=== PATIENT | female | born 1960 | race Caucasian/White ===

== ENCOUNTER 2024-08-29 09:48 | Emergency (ER) | payer BC, SELFPAY ==
[2024-08-29 09:59] VITALS: BP 120/62
[2024-08-29] MEDS: ZOFRAN 4 MG IV (10:34)
[2024-08-29] MEDS: MORPHINE SULFATE 4 MG IV (10:52)
[2024-08-29 10:57] LABS: Blood Urea Nitrogen 33 mg/dl (7-17); Carbon Dioxide 25 mmol/L (22-30); Chloride 100 mmol/L (98-107); Glucose 120 mg/dl (70-99); Potassium 3.4 mmol/L (3.5-5.1); Sodium 135 mmol/L (135-145); eGFR > 60.00
[2024-08-29 10:58] LABS: Calcium 9.2 mg/dl (8.4-10.2)
--- NOTE | 2024-08-29 11:04 | ED.MUSCINJ ---
HPI-Injury
<ST StefaniePA - Last Filed: 08/29/24 12:34>
General
Chief Complaint: Musculo-Skeletal Complaint
Source: patient
Exam Limitations: other (Pt unable to remove pants at time of exam)
Time Seen by Provider: 08/29/24 09:56
History of Present Illness-Injury
Is this injury a work related problem?: No
Initial Injury comments:
This is a 64 y/o female with PMH of sarcoidosis who presents to the ED with CC of leg pain. She reports a fall at approximately 8:15 am that was the result of falling off the ottoman at her home when trying to kill a bug. She fell on her buttocks
onto the hardwood floor and denies LOC or hitting her head. The pain is located in the R hip region and superior thigh. She took Ibuprofen prior to arrival at the ED and denies any improvement in pain. She describes radiation down the leg. Pain is
10/10 and 'unbearable and stabbing.' She describes a 'click' sound when she tried to move her leg [id number] after the fall. She denies any previous injuries to the LE and any past surgeries to the LE. Admits to nausea and contributes it to not
eating or drinking anything today. She denies headache, vision changes or dizziness.
<Ivan Gross DO - Last Filed: 08/29/24 13:32>
History of Present Illness-Injury
Initial Injury comments:
64-year-old female presented to fall. She was trying to get a bug and was standing on a ottoman. She fell down injuring her right side. Complains of pain in her right upper hip as well as the right upper leg and right buttocks. She denies head
injury. No neck pain. No upper back pain. No abdominal pain. No chest pain. adds that she was in a good amount of pain and had to call 911
Past History
<Ivan Gross DO - Last Filed: 08/29/24 13:32>
Past History
ED Past Medical History: Other (Sarcoidosis)
Review of Systems
<ABDIEL Watts - Last Filed: 08/29/24 12:34>
Review of Systems
All Other Systems: ROS reviewed and negative except as documented in HPI and ROS
Constitutional: Reports no symptoms
EENT: Reports no symptoms
Respiratory: Reports no symptoms
Cardiac: Reports no symptoms
ABD/GI: Reports no symptoms
: Reports no symptoms
Skin: Reports no symptoms
Neurological: Reports no symptoms
Phy Exam
<ABDIEL Watts - Last Filed: 08/29/24 12:34>
General Physical Exam
General Presentation: mild distress
General age: appears stated age
General Skin: warm and dry
General Habitus: normal
General Mental: alert and anxious
General Hydration: appears well hydrated
Eye Exam
Eye Exam: PERRL
Cardiovascular Exam
Cardiovascular Exam: no edema, no gallop, no JVD, no murmur, no carotid bruit and tachycardia
Pulmonary Exam
Pulmonary Exam: lungs clear, no respiratory distress, no rales, no crackles, no rhonchi, no wheezing and no cough
Gastrointestinal Exam
Gastrointestinal Exam: non tender, soft and non distended
Neurological Exam
Neurological Exam: alert, oriented x3, no motor deficits, no sensory deficits and speech normal
Musculoskeletal Exam
Musculoskeletal Exam: neuro vasc intact and other (R hip with limited ROM with regard to flexion; full active ROM internal and external rotation)
<Ivan Gross DO - Last Filed: 08/29/24 13:32>
Physical Exam
Physical Exam:
CONSTITUTIONAL Patient alert and oriented to person, place and time. Well-appearing. Vital signs reviewed. Mild to moderate pain distress
HEAD atraumatic, normocephalic.
EYES eyelids normal to inspection, Extraocular muscles intact, Conjunctiva normal, Sclera normal.
NECK normal range of motion, Trachea midline, no jugular venous distention.
RESPIRATORY CHEST No respiratory distress noted, Chest expansion equal
\\
ABDOMEN abdomen nontender, Bowel sounds normal. No distention.
BACK normal inspection, no obvious deformities. No midline tenderness.
UPPER EXTREMITY range of motion normal, Motor strength normal, no cyanosis, no edema.
LOWER EXTREMITY no cyanosis, no edema. Patient is not shortened. There is no natural internal/external rotation. She has no pain with internal or external rotation on exam. She does have pain with flexion of the hip but is able to flex the
hip. There is no tenderness to the greater trochanter. She does have moderate tenderness toward the right groin. She reports pain is in her upper thigh and right pelvic region
NEURO Speech normal, No focal motor deficits, Joselo coma scale 15, Memory normal, Cranial Nerves intact to screening exam.
SKIN skin warm, dry, and normal in color.
Injury Course
<Elo Licona, ABDIEL - Last Filed: 08/29/24 12:34>
Orders/Labs/Results
Orders:
Orders
08/29/24 10:14
Ondansetron Orally Disint [Zofran Odt (Orally Disintegrating)] 4 mg PO NOW STA
08/29/24 10:21
CT Abd/Pel (IV only)-DH only Urgent
Comment:
Reason For Exam: R sided pain, fall, hematuria
08/29/24 10:30
Basic Metabolic Panel Urgent
Complete Blood Count/With Diff Urgent
08/29/24 10:32
Ondansetron Injectable [Zofran] 4 mg .ROUTE .STK-MED ONE
08/29/24 10:34
Ondansetron Injectable [Zofran] 4 mg IV NOW STA
08/29/24 10:46
Morphine Sulfate 4 mg .ROUTE .STK-MED ONE
08/29/24 10:52
Morphine Sulfate 4 mg IV NOW STA
08/29/24 12:03
HYDROmorphone [Dilaudid] 0.5 mg IV NOW STA
08/29/24 12:18
Hawk Placement- Treatment ONCE
Reason for insertion: Urology Determination
08/29/24 12:27
IV Insert/Care/Rem.- Treatment PRN
Abnormal Lab Results
08/29/24
10:30
Hgb 11.9 L g/dL
(12.0-16.0)
Hct 36.6 L %
(37.0-47.0)
MCHC 32.5 L g/dL
(33.0-37.0)
RDW 14.8 H %
(11.5-14.5)
Absolute Lymphs (auto) 0.4 L 10^3/uL
(1.2-3.4)
Immature Gran % 0.7 H %
(0-0.5)
Neutrophils % 90.7 H %
(42.2-75.2)
Lymphocytes % 6.6 L %
(20.5-51.1)
Monocytes % 1.6 L %
(1.7-9.3)
Potassium 3.4 L mmol/L
(3.5-5.1)
BUN 33 H mg/dl
(7-17)
Glucose 120 H mg/dl
(70-99)
08/29/24 10:30
08/29/24 10:30
<Ivan Gross, - Last Filed: 08/29/24 13:32>
Orders/Labs/Results
Orders:
Orders
08/29/24 10:14
Ondansetron Orally Disint [Zofran Odt (Orally Disintegrating)] 4 mg PO NOW STA
08/29/24 10:21
CT Abd/Pel (IV only)-[facility] only Urgent
Comment:
Reason For Exam: R sided pain, fall, hematuria
08/29/24 10:30
Basic Metabolic Panel Urgent
Complete Blood Count/With Diff Urgent
08/29/24 10:32
Ondansetron Injectable [Zofran] 4 mg .ROUTE .STK-MED ONE
08/29/24 10:34
Ondansetron Injectable [Zofran] 4 mg IV NOW STA
08/29/24 10:46
Morphine Sulfate 4 mg .ROUTE .STK-MED ONE
08/29/24 10:52
Morphine Sulfate 4 mg IV NOW STA
08/29/24 12:03
HYDROmorphone [Dilaudid] 0.5 mg IV NOW STA
08/29/24 12:18
Hawk Placement- Treatment ONCE
Reason for insertion: Urology Determination
08/29/24 12:27
IV Insert/Care/Rem.- Treatment PRN
Abnormal Lab Results
08/29/24
10:30
Hgb 11.9 L g/dL
(12.0-16.0)
Hct 36.6 L %
(37.0-47.0)
MCHC 32.5 L g/dL
(33.0-37.0)
RDW 14.8 H %
(11.5-14.5)
Absolute Lymphs (auto) 0.4 L 10^3/uL
(1.2-3.4)
Immature Gran % 0.7 H %
(0-0.5)
Neutrophils % 90.7 H %
(42.2-75.2)
Lymphocytes % 6.6 L %
(20.5-51.1)
Monocytes % 1.6 L %
(1.7-9.3)
Potassium 3.4 L mmol/L
(3.5-5.1)
BUN 33 H mg/dl
(7-17)
Glucose 120 H mg/dl
(70-99)
08/29/24 10:30
08/29/24 10:30
<Ivan Gross DO - Last Filed: 08/29/24 13:32>
MDM/Problems Addressed
Differential Diagnosis Includes:
Psoas hematoma, kidney injury, pelvic fracture, hip fracture, acetabular fracture, femur fracture
MDM/Problems Addressed:
Pelvic fracture, hematuria
<Ivan Gross DO - Last Filed: 08/29/24 13:32>
*Radiology
Radiology exam reviewed: preliminary read by ED provider (Preliminary read by me shows a displaced right pelvic fracture. Seems to be some intrusion towards the bladder.)
*Pulse Oximetry
Patient hypoxic: no
*Critical Care Note
Total Time (30-74mins, 75-104mins- exclusive of procedures): 45 minutes
Data Reviewed
Source: patient and spouse
Further Testing Considered But Not Given:
Considered head and C-spine imaging but patient has no midline tenderness and no evidence of head injury and denies head injury. She is awake alert and orient
<Ivan Gross DO - Last Filed: 08/29/24 13:32>
Patient Management
Discussion with other providers: [employer] Operator Chief (Case discussed with Dr. Wilcox of orthopedics) and Radiologist (Case discussed with Dr. Jalloh who will emergently review films)
Escalation/DeEscalation of care consider admission/obs:
12:47 PM 64-year-old female presents after fall from an ottoman trying to get a bug. She fell to her right side. She denies head is not anticoagulated. History of sarcoidosis. Does have an apparent displaced right superior pubic ramus fracture
and I am concerned in light of the fact she has hematuria. Still await radiology reading. Will discuss with trauma surgery. Case was discussed with [facility] orthopedics Dr. Wilcox
1320 Case discussed with trauma at [facility] Dr. Dennison. Patient does remain stable. Does request a cervical collar for transport. On reevaluation patient states her pain is controlled but she is lying still. Does have blood into her catheter.
Again I do not have clinical concern for urethral injury but in light of the possible bladder injury Hawk catheter was placed.
ED Attending Note
<ABDIEL Watts - Last Filed: 08/29/24 12:34>
-
Portions of this chart may have been created with voice recognition software.� Occasional wrong word or��sound alike� substitutions may have occurred due to the inherent limitations of voice recognition software.
Discharge Plan
Departure
Patient Disposition: Acute Care Hospital
Date of Disposition: 08/29/24
Time of Disposition: 12:31
Discharge Problem:
Pelvic fracture, Extraperitoneal pelvic hematoma, Hematuria
Referrals:
UNKNOWN - PT DOES,NOT KNOW [Family Provider] -
Hospital Transfer
Other hospital: [facility]
I certify that the patient requires transfer: Yes
Discussed case with accepting physician: Trauma
Reason for transfer: specialties available
Interventions
Interventions:
*Risk Screen - Suicide Last Done: 08/29/24 09:59
*General Assessment Last Done: 08/29/24 11:28
*Neglect/Abuse Screening Last Done: 08/29/24 09:59
ED- Fall Risk Assessment Last Done: 08/29/24 11:28
*ED COVID-19 Vaccine History Last Done: 08/29/24 11:28
ED-Musculoskeletal Assessment Last Done: 08/29/24 11:26
Discharge Date and Time
Print Language: RUSSIAN
[2024-08-29 11:11] LABS: % Basophils 0.2 % (0-2); % Eosinophils 0.2 % (0-6); % Immature Granulocytes 0.7 % (0-0.5); % Lymphocytes 6.6 % (20.5-51.1); % Monocytes 1.6 % (1.7-9.3); % Neutrophils 90.7 % (42.2-75.2); Absolute Lymphocytes 0.4 10^3/uL (1.2-3.4); Absolute Monocytes 0.1 10^3/uL (0.1-0.6); Absolute Neutrophils 5.2 10^3/uL (1.4-6.5); Hematocrit 36.6 % (37.0-47.0); Hemoglobin 11.9 g/dL (12.0-16.0); Mean Corp Hgb Conc. 32.5 g/dL (33.0-37.0); Mean Corpuscular Hgb 27.6 pg (27.0-31.0); Mean Corpuscular Volume 84.9 fL (81.0-99.0); Mean Platelet Volume 9.3 fL (7.4-10.4); Nucleated Red Blood Cells % 0 %; Platelet Count 166 10^3/uL (130-400); Red Blood Cell Count 4.31 10^6/uL (4.20-5.40); Red Cell Dist. Width 14.8 % (11.5-14.5); White Blood Cell Count 5.8 10^3/uL (4.8-10.8)
[2024-08-29 11:30] VITALS: BP 110/74
[2024-08-29] MEDS: DILAUDID 0.5 MG IV ×2 (13:08→14:18)
[2024-08-29 13:33] VITALS: BMI 24.8
[2024-08-29 13:34] VITALS: BP 104/75
[2024-08-29 14:17] VITALS: BP 107/75
== END 2024-08-29 15:08 | disposition short-term general hospital (02) ==
LOC: EMR 09:48
PROVIDERS: EMERGENCY PHYSICIAN Emergency Medicine
DX: S32.511A Fracture of superior rim of right pubis, initial encounter for closed fracture (principal); W19.XXXA Unspecified fall, initial encounter; K68.3 Retroperitoneal hematoma; R31.9 Hematuria, unspecified
CPT/HCPCS: 99291; 96374; 96375 ×2; 96376; 51702; 74177; 80048; 85025; Q9967